=== PATIENT | female | born 1950 | race Caucasian/White ===

== ENCOUNTER → 2016-04-06 | Outpatient (CLI) | payer BC ==
[2005-12-02 12:20] VITALS: PULSE 62
[~2016-04-06] MED LIST: ANTABUSE 250MG250 MG PO; FLONASEALLERGY NS; FOLIC ACID 11 MG/TA1 PO; FOSAMAX 70MG TA70 MG PO; LEVAQUIN 5500 MG/TA1 PO; LEVOTHYROXIN0.137 MG PO; MIDRIN 325 MG-11 CAP PO; MOBIC15 MG PO; MUCINEX1200 MG PO; MULTI VITAMINS1 TAB PO; MULTIPLE VITAMI1 CAP PO; MULTIPLE VITAMI1 TA5 PO; NORCO 325 MG-51 TAB PO; PREDNISONE20 MG PO; PRILOSEC 20MG20 MG PO; PRILOTC PO; RT ADVAIR 228 DISKUS IH; SYNTHROID0.137 MG PO; THIAMINE 1100 MG/TAB PO; TOPAMAX 25MG25 M1 PO; TYLENOL 500MG500 MG PO; ULTRAM 50MG TAB50 MG PO
[2016-04-06 16:25] LABS: HIV 1/2 Antibodies Non-Reactive; HIV-1p24 Antigen Non-Reactive
== END ==
LOC: COL.LAB 15:11
PROVIDERS: Orthopaedic Surgery
DX: Z01.812 Encounter for preprocedural laboratory examination (principal); M16.12 Unilateral primary osteoarthritis, left hip

== ENCOUNTER 2016-10-30 13:18 | Inpatient (IN) | payer BC ==
[~2016-10-30] VITALS: Ht 165.1 cm; Wt 52.1 kg
[~2016-10-30 13:18] MED LIST changes: -ANTABUSE 250MG250 MG PO; -FLONASEALLERGY NS; -FOLIC ACID 11 MG/TA1 PO; -LEVAQUIN 5500 MG/TA1 PO; -MIDRIN 325 MG-11 CAP PO; -MOBIC15 MG PO; -MULTI VITAMINS1 TAB PO; -PREDNISONE20 MG PO; -PRILOTC PO; -RT ADVAIR 228 DISKUS IH; -THIAMINE 1100 MG/TAB PO; -TOPAMAX 25MG25 M1 PO; -ULTRAM 50MG TAB50 MG PO
[2016-10-30 14:02] LABS: HEMATOCRIT 39.8 % (37.0-47.0); HEMOGLOBIN 13.3 g/dl (12.5-16.0); MEAN CELL VOLUME 91 fl (80.0-100.0); MEAN CORPUSCULAR HEMOGLOBIN 30 pg (27.0-31.0); MEAN CORPUSCULAR HGB CONC 33 g/dl (33.0-37.0); MEAN PLATELET VOLUME 9.8 fl (7.4-10.4); PLATELET COUNT 374 K/mm3 (130-400); REDCELL DISTRIBUTION WIDTH-CV 15.4 % (11.5-14.5); WHITE BLOOD COUNT 12.8 K/mm3 (4.8-10.8)
[2016-10-30 14:04] LABS: ADD PATHOLOGY DIFF REVIEW NO
[2016-10-30 14:15] LABS: ADJUSTED CALCIUM 9.5 mg/dL (8.4-10.2); ALANINE AMINOTRANSFERASE 35 U/L (9-52); ALBUMIN 4.3 gm/dL (3.5-5.0); ALKALINE PHOSPHATASE 378 U/L (50-136); ANION GAP 12 mmol/L (7-16); BILIRUBIN,TOTAL 0.6 mg/dL (0.0-1.0); BLOOD UREA NITROGEN 9 mg/dL (7-17); C-REACTIVE PROTEIN 2.1 mg/dL (0.0-0.9); CALCIUM 9.7 mg/dL (8.4-10.2); CARBON DIOXIDE 19 mmol/L (22-30); CHLORIDE 105 mmol/L (98-107); CREATININE, serum 0.73 mg/dL (0.52-1.25); GLUCOSE 111 mg/dL (74-106); POTASSIUM 4.4 mmol/L (3.4-5.0); SODIUM 136 mmol/L (137-145); TOTAL PROTEIN 8.3 gm/dL (6.4-8.2)
[2016-10-30 14:21] LABS: ALLEN TEST NO; ARTERIAL BLD GAS O2 SATURATION 90.9 % (92-100); ARTERIAL BLD GAS TCO2 CT 21.3; ARTERIAL BLOOD GAS HCO3 20.5 meq/L (22-26); ARTERIAL BLOOD GAS PO2 56.7 mmHg (80-100); ARTERIAL BLOOD GAS pH 7.47 (7.35-7.45); ATS? YES
[2016-10-30 14:37] LABS: BAND 2 % (0-10); EOSINOPHIL 5 % (0-4); NEUTROPHILS 58 % (42.0-75.2); PLATELET ESTIMATE NORMAL (NORMAL); TOTAL CELLS COUNTED 100
[2016-10-30] MEDS ORDERED: ULTRAM 50MG TAB50 MG PO (17:16)
[2016-10-30] MEDS ORDERED: MOBIC15 MG PO (17:16)
[2016-10-30 18:53] VITALS: BP 137/68; PULSE 98; TEMP 101.7
[2016-10-30 19:48] VITALS: BP 136/58; PULSE 105; TEMP 101.1
[2016-10-30 22:22] VITALS: BP 142/59; PULSE 101; TEMP 99.9
[2016-10-30 23:34] LABS: PH 6 (5-8); SQUAMOUS EPITHELIAL None Seen /hpf; URINE APPEARANCE Clear; URINE BACTERIA None Seen /hpf; URINE BILIRUBIN Negative (NEGATIVE); URINE BLOOD 1+ (NEGATIVE); URINE COLOR Yellow; URINE GLUCOSE Negative (NEGATIVE); URINE KETONE 1+ (NEGATIVE); URINE UROBILINOGEN Negative (NEGATIVE); URINE WBC 0-2 /hpf
[2016-10-30 23:41] LABS: AMPHETAMINE URINE NEGATIVE; BARBITURATES URINE NEGATIVE; BENZODIAZEPINES URINE POSITIVE; BUPRENORPHINE URINE NEGATIVE; METHADONE URINE NEGATIVE; OPIATES URINE NEGATIVE; OXYCODONE URINE NEGATIVE; PHENCYCLIDINE URINE NEGATIVE; PROPOXYPHENE URINE NEGATIVE; THC CANNABINOIDS URINE NEGATIVE
[2016-10-31] VITALS (7 sets, daily range): BP systolic 108–133; BP diastolic 47–60; PULSE 73–101; TEMP 97.8–101.4
[2016-10-31 07:17] LABS: ADJUSTED CALCIUM 9.3 mg/dL (8.4-10.2); ALBUMIN 3.8 gm/dL (3.5-5.0); BILIRUBIN,TOTAL 0.5 mg/dL (0.0-1.0); CALCIUM 9.1 mg/dL (8.4-10.2); CREATININE, serum 0.73 mg/dL (0.52-1.25); MAGNESIUM 2.1 mg/dL (1.6-2.3); TOTAL PROTEIN 7.3 gm/dL (6.4-8.2)
[2016-11-01] VITALS (7 sets, daily range): BP systolic 110–143; BP diastolic 47–61; PULSE 65–77; TEMP 97.5–98.8
[2016-11-01 13:28] LABS: MEAN CELL VOLUME 91 fl (80.0-100.0); MEAN CORPUSCULAR HGB CONC 33 g/dl (33.0-37.0); RED BLOOD COUNT 3.53 M/mm3 (4.10-5.30); REDCELL DISTRIBUTION WIDTH-CV 16.1 % (11.5-14.5); WHITE BLOOD COUNT 12.4 K/mm3 (4.8-10.8)
[2016-11-01 13:30] LABS: ADD PATHOLOGY DIFF REVIEW NO; HEMOGLOBIN 10.5 g/dl (12.5-16.0); MEAN CORPUSCULAR HEMOGLOBIN 30 pg (27.0-31.0); PLATELET COUNT 264 K/mm3 (130-400)
[2016-11-01 14:28] LABS: BAND 26 % (0-10); MYELOCYTE 2 % (0-0); NEUTROPHILS 61 % (42.0-75.2); TOTAL CELLS COUNTED 100
[2016-11-01 14:29] LABS: PLATELET ESTIMATE NORMAL (NORMAL)
[2016-11-02] VITALS (13 sets, daily range): BP systolic 107–134; BP diastolic 52–73; PULSE 57–87; TEMP 97–97.9
[2016-11-03] VITALS (7 sets, daily range): BP systolic 122–129; BP diastolic 49–84; PULSE 62–76; TEMP 96.9–98.2
[2016-11-03 05:19] LABS: BASO % 0.1 % (0.0-2.0); EOS # 0.2 (0.0-0.7); EOS % 1.9 % (0-4.0); GRAN # 5.2 (1.4-6.5); GRAN % 57.8 % (42.2-75.2); LYMPH # 2.5 (1.2-3.4); LYMPH % 28.3 % (20.0-51.0); MEAN CELL VOLUME 90 fl (80.0-100.0); MEAN CORPUSCULAR HGB CONC 33 g/dl (33.0-37.0); MEAN PLATELET VOLUME 10.3 fl (7.4-10.4); MONO # 0.9 (0.1-0.6); MONO % 10.2 % (1.7-9.3); PLATELET COUNT 306 K/mm3 (130-400); RED BLOOD COUNT 3.32 M/mm3 (4.10-5.30); REDCELL DISTRIBUTION WIDTH-CV 16.1 % (11.5-14.5); WHITE BLOOD COUNT 8.9 K/mm3 (4.8-10.8)
[2016-11-03 05:24] LABS: PROTHROMBIN TIME 11.1 SECONDS (9.7-12.8)
[2016-11-03 05:26] LABS: HEMOGLOBIN 9.8 g/dl (12.5-16.0); MEAN CORPUSCULAR HEMOGLOBIN 30 pg (27.0-31.0)
[2016-11-03 05:44] LABS: CALCIUM 8.7 mg/dL (8.4-10.2); CREATININE, serum 0.64 mg/dL (0.52-1.25); POTASSIUM 3.6 mmol/L (3.4-5.0)
[2016-11-03 09:51] LABS: CEREBROSPINAL TUBE #4; CSF APPEARANCE CLEAR; CSF COLOR COLORLESS
[2016-11-03] MEDS ORDERED: PREDNISONE20 MG PO (13:50)
[2016-11-03] MEDS ORDERED: LEVAQUIN 5500 MG/TA1 PO ×2 (13:50→14:24)
[2016-11-03] MEDS ORDERED: RT ADVAIR 228 DISKUS IH (13:51)
[2016-11-03] MEDS ORDERED: FLONASEALLERGY NS (14:24)
== END 2016-11-03 16:12 | disposition home or self-care (01) | DRG 189 ==
LOC: COL.ER 13:18 → MEDICAL 16:47
PROVIDERS: Emergency Medicine; Family Medicine; Internal Medicine; Nurse Practitioner Family
PROC: 009U3ZX Drainage of Spinal Canal, Percutaneous Approach, Diagnostic (ICD-10-PCS; principal; 2016-11-03)
DX: J96.01 Acute respiratory failure with hypoxia (principal); J44.1 Chronic obstructive pulmonary disease with (acute) exacerbation; E87.3 Alkalosis; F10.239 Alcohol dependence with withdrawal, unspecified; F17.210 Nicotine dependence, cigarettes, uncomplicated; R91.8 Other nonspecific abnormal finding of lung field
CPT/HCPCS: 99222-AI; 99232-AI; 99233-AI; 99239; A9585; J1644; J1956; J2060; J2930; J3411; J3475; J7030; J7512; Q9967

== ENCOUNTER 2016-11-17 08:56 | Outpatient (CLI) | payer BC, OTHER ==
[~2016-11-17] VITALS: Ht 165.1 cm; Wt 50.3 kg
[2016-11-17] VITALS (17 sets, daily range): BP systolic 108–136; BP diastolic 53–80; PULSE 60–76
[~2016-11-17 08:56] MED LIST changes: +FLONASEALLERGY NS; +LEVAQUIN 5500 MG/TA1 PO; +MOBIC15 MG PO; +PREDNISONE20 MG PO; +RT ADVAIR 228 DISKUS IH; +ULTRAM 50MG TAB50 MG PO
[2016-11-17] MEDS ORDERED: PRILOTC PO (09:34)
== END 2016-11-17 13:56 | disposition home or self-care (01) ==
LOC: COL.RAD 08:56
DX: J43.9 Emphysema, unspecified (principal); J84.10 Pulmonary fibrosis, unspecified; F17.210 Nicotine dependence, cigarettes, uncomplicated
CPT/HCPCS: J3010

== ENCOUNTER 2016-11-18 19:52 | Inpatient (IN) | payer BC, OTHER ==
[~2016-11-18] VITALS: Ht 165.1 cm; Wt 50.5 kg
[~2016-11-18 19:52] MED LIST changes: +PRILOTC PO
[2016-11-18 20:43] LABS: PH 6 (5-8); SQUAMOUS EPITHELIAL None Seen /hpf; URINE APPEARANCE Clear; URINE BACTERIA None Seen /hpf; URINE BILIRUBIN Negative (NEGATIVE); URINE BLOOD Negative (NEGATIVE); URINE COLOR Yellow; URINE GLUCOSE Negative (NEGATIVE); URINE KETONE 2+ (NEGATIVE); URINE UROBILINOGEN Negative (NEGATIVE)
[2016-11-18 20:47] LABS: AMPHETAMINE URINE NEGATIVE; BARBITURATES URINE NEGATIVE; BENZODIAZEPINES URINE NEGATIVE; BUPRENORPHINE URINE NEGATIVE; METHADONE URINE NEGATIVE; OPIATES URINE NEGATIVE; OXYCODONE URINE NEGATIVE; PHENCYCLIDINE URINE NEGATIVE; PROPOXYPHENE URINE NEGATIVE; THC CANNABINOIDS URINE NEGATIVE
[2016-11-18 20:56] LABS: ARTERIAL BLD GAS TCO2 CT 23.3; ARTERIAL BLOOD GAS BASE EXCESS -0.2 (-2-2); ARTERIAL BLOOD GAS HCO3 22.4 meq/L (22-26); ARTERIAL BLOOD GAS PHT 7.48 C (7.35-7.45); ARTERIAL BLOOD GAS PO2 79.8 mmHg (80-100); ARTERIAL BLOOD GAS PO2T 79.8 (80-100); ARTERIAL BLOOD GAS pH 7.48 (7.35-7.45); OXYHEMOGLOBIN 94.8 %
[2016-11-18 20:57] LABS: ALLEN TEST YES; ALLENS TEST RESULT PASS; ATS? YES
[2016-11-18 21:04] LABS: INR 0.9 (0.8-3.0); PROTHROMBIN TIME 10.4 SECONDS (9.7-12.8)
[2016-11-18 21:21] LABS: C-REACTIVE PROTEIN 0.8 mg/dL (0.0-0.9); THYROID STIMULATING HORMONE 0.947 uIU/mL (0.465-4.680); TROPONIN-I < 0.012 ng/mL (0.000-0.034)
[2016-11-18 21:56] LABS: BASO # 0.1 (0.0-0.2); BASO % 0.6 % (0.0-2.0); EOS # 0.1 (0.0-0.7); EOS % 1.1 % (0-4.0); GRAN # 6.2 (1.4-6.5); GRAN % 74.3 % (42.2-75.2); HEMATOCRIT 40.5 % (37.0-47.0); HEMOGLOBIN 13.2 g/dl (12.5-16.0); LYMPH # 1.5 (1.2-3.4); LYMPH % 17.9 % (20.0-51.0); MEAN CELL VOLUME 91 fl (80.0-100.0); MEAN CORPUSCULAR HEMOGLOBIN 30 pg (27.0-31.0); MEAN CORPUSCULAR HGB CONC 33 g/dl (33.0-37.0); MEAN PLATELET VOLUME 11.5 fl (7.4-10.4); MONO # 0.5 (0.1-0.6); MONO % 5.5 % (1.7-9.3); PLATELET COUNT 262 K/mm3 (130-400); RED BLOOD COUNT 4.43 M/mm3 (4.10-5.30); REDCELL DISTRIBUTION WIDTH-CV 15.9 % (11.5-14.5); WHITE BLOOD COUNT 8.4 K/mm3 (4.8-10.8)
[2016-11-18 22:05] LABS: ADJUSTED CALCIUM 9.6 mg/dL (8.4-10.2); BILIRUBIN,TOTAL 0.9 mg/dL (0.0-1.0); CALCIUM 9.6 mg/dL (8.4-10.2); CREATININE, serum 0.68 mg/dL (0.52-1.25); POTASSIUM 4.6 mmol/L (3.4-5.0); TOTAL PROTEIN 7.7 gm/dL (6.4-8.2)
[2016-11-18 22:24] VITALS: BP 129/56; PULSE 70; TEMP 99
[2016-11-19] VITALS (7 sets, daily range): BP systolic 97–114; BP diastolic 46–61; PULSE 62–86; TEMP 97.5–98.5
[2016-11-19 03:32] LABS: MAGNESIUM 1.8 mg/dL (1.6-2.3)
[2016-11-20] VITALS (563 sets, daily range): BP systolic 107–134; BP diastolic 51–72; PULSE 67–82; TEMP 97.4–98.2; O2SAT 68–100
[2016-11-20 07:17] LABS: BASO # 0.1 (0.0-0.2); BASO % 0.8 % (0.0-2.0); EOS # 0.7 (0.0-0.7); EOS % 7.7 % (0-4.0); GRAN # 4.9 (1.4-6.5); GRAN % 58.7 % (42.2-75.2); HEMATOCRIT 37.4 % (37.0-47.0); LYMPH # 2.1 (1.2-3.4); LYMPH % 24.4 % (20.0-51.0); MEAN CELL VOLUME 94 fl (80.0-100.0); MEAN CORPUSCULAR HEMOGLOBIN 30 pg (27.0-31.0); MEAN CORPUSCULAR HGB CONC 32 g/dl (33.0-37.0); MEAN PLATELET VOLUME 10.6 fl (7.4-10.4); MONO # 0.7 (0.1-0.6); MONO % 7.9 % (1.7-9.3); PLATELET COUNT 203 K/mm3 (130-400); REDCELL DISTRIBUTION WIDTH-CV 16.1 % (11.5-14.5); WHITE BLOOD COUNT 8.4 K/mm3 (4.8-10.8)
[2016-11-20 07:18] LABS: HEMOGLOBIN 11.9 g/dl (12.5-16.0)
[2016-11-20 07:31] LABS: ANION GAP 8 mmol/L (7-16); BLOOD UREA NITROGEN 5 mg/dL (7-17); CALCIUM 9.2 mg/dL (8.4-10.2); CARBON DIOXIDE 23 mmol/L (22-30); CHLORIDE 113 mmol/L (98-107); CHOLESTEROL 212 mg/dL (120-200); CREATININE, serum 0.64 mg/dL (0.52-1.25); GLUCOSE 78 mg/dL (74-106); HDL CHOLESTEROL 61 mg/dL; LDL CHOLESTEROL 133 mg/dL; POTASSIUM 3.6 mmol/L (3.4-5.0); SODIUM 144 mmol/L (137-145); TRIGLYCERIDE 89 mg/dL
[2016-11-20 07:33] LABS: C-REACTIVE PROTEIN < 0.5 mg/dL (0.0-0.9)
[2016-11-20 07:44] LABS: ERYTHROCYTE SEDIMENTATION RATE 16 mm/hr (0-30)
[2016-11-21] VITALS (33 sets, daily range): BP systolic 118–146; BP diastolic 63–74; PULSE 59–77; TEMP 97.6–98.9; O2SAT 97–99
[2016-11-21 13:29] LABS: .COPPER,S 1.15 mcg/mL (())
[2016-11-22] VITALS (12 sets, daily range): BP systolic 105–141; BP diastolic 51–70; PULSE 61–85; TEMP 97.8–98.9
[2016-11-23] VITALS (7 sets, daily range): BP systolic 114–125; BP diastolic 53–62; PULSE 67–78; TEMP 97.6–98.8
[2016-11-23] MEDS ORDERED: TOPAMAX 25MG25 M1 PO (14:20)
[2016-11-23] MEDS ORDERED: MIDRIN 325 MG-11 CAP PO (14:21)
[2016-11-23] MEDS ORDERED: FOLIC ACID 11 MG/TA1 PO (14:24)
[2016-11-23] MEDS ORDERED: MULTI VITAMINS1 TAB PO (14:25)
[2016-11-23] MEDS ORDERED: THIAMINE 1100 MG/TAB PO (14:25)
[2016-11-23] MEDS ORDERED: ANTABUSE 250MG250 MG PO (14:32)
[2016-11-24 09:57] LABS: VITAMIN E 10.6 mg/L (())
== END 2016-11-23 15:19 | disposition home health service (06) | DRG 897 ==
LOC: COL.ER 19:52 → MEDICAL 21:22 → ICU 11-20 12:20 → MEDICAL 11-21 19:00
PROVIDERS: Family Medicine; Internal Medicine; Nurse Practitioner Family; Physician Assistant; Psychiatry & Neurology Neurology
DX: F10.231 Alcohol dependence with withdrawal delirium (principal); E87.3 Alkalosis; E46 Unspecified protein-calorie malnutrition; Z68.1 Body mass index [BMI] 19.9 or less, adult; J44.9 Chronic obstructive pulmonary disease, unspecified; F17.210 Nicotine dependence, cigarettes, uncomplicated; G43.719 Chronic migraine without aura, intractable, without status migrainosus; G44.1 Vascular headache, not elsewhere classified; F32.9 Major depressive disorder, single episode, unspecified; I67.1 Cerebral aneurysm, nonruptured
CPT/HCPCS: 90791-AI; 99223-AI; 99233-AI; 99239; A9585; G8987-GO; G8988-GO; J1200; J1885; J2060; J3010; J3475; J7030

== ENCOUNTER → 2016-12-17 | Outpatient (CLI) | payer MEDICARE, BC ==
[~2016-12-17] MED LIST changes: +ANTABUSE 250MG250 MG PO; +FOLIC ACID 11 MG/TA1 PO; +MIDRIN 325 MG-11 CAP PO; +MULTI VITAMINS1 TAB PO; +THIAMINE 1100 MG/TAB PO; +TOPAMAX 25MG25 M1 PO
== END ==
LOC: BHSO 09:07
DX: F41.1 Generalized anxiety disorder (principal)

== ENCOUNTER → 2017-01-04 | Outpatient (CLI) | payer MEDICARE, BC, OTHER | LOC: MC.RAD 10:03 | DX: Z12.31 Encounter for screening mammogram for malignant neoplasm of breast (principal) ==

== ENCOUNTER → 2018-05-11 | Outpatient (CLI) | payer MEDICARE, OTHER | LOC: MC.RAD 07:37 | DX: Z12.31 Encounter for screening mammogram for malignant neoplasm of breast (principal) ==

== ENCOUNTER 2018-10-31 17:15 | Emergency (ER) | payer MEDICARE, OTHER ==
[~2018-10-31] VITALS: Ht 167.6 cm; Wt 59.1 kg
[~2018-10-31 17:15] MED LIST changes: +NEURONTIN300 MG/CAP PO; +SYNTHROID0.088 MG/T PO; -SYNTHROID0.137 MG PO
[2018-10-31 17:45] VITALS: TEMP 98.7
[2018-10-31 18:18] LABS: BASO % 0.3 % (0.0-2.0); EOS # 0.6 (0.0-0.7); EOS % 3.9 % (0-4.0); GRAN # 10.5 (1.4-6.5); GRAN % 70.2 % (42.2-75.2); HEMOGLOBIN 10.9 g/dl (12.5-16.0); LYMPH # 2.5 (1.2-3.4); LYMPH % 16.8 % (20.0-51.0); MEAN CELL VOLUME 91 fl (80.0-100.0); MEAN CORPUSCULAR HEMOGLOBIN 30 pg (27.0-31.0); MEAN CORPUSCULAR HGB CONC 33 g/dl (33.0-37.0); MEAN PLATELET VOLUME 9.8 fl (7.4-10.4); MONO # 1.2 (0.1-0.6); MONO % 8.3 % (1.7-9.3); PLATELET COUNT 443 K/mm3 (130-400); RED BLOOD COUNT 3.67 M/mm3 (4.10-5.30)
[2018-10-31 18:26] LABS: ALBUMIN 3.6 gm/dL (3.5-5.0); BILIRUBIN,TOTAL 0.4 mg/dL (0.0-1.0); CALCIUM 8.8 mg/dL (8.4-10.2); CREATININE, serum 0.67 (0.52-1.25); POTASSIUM 4.3 mmol/L (3.4-5.0); TOTAL PROTEIN 6.5 gm/dL (6.4-8.2)
[2018-10-31 18:29] LABS: HEMATOCRIT 33.4 % (37.0-47.0)
[2018-10-31 18:54] LABS: COLLECTION METHOD CLEAN CATCH
[2018-10-31 19:01] LABS: PH 6 (5-8); SQUAMOUS EPITHELIAL 0-2 /hpf; URINE APPEARANCE Clear; URINE BACTERIA None Seen /hpf; URINE BILIRUBIN Negative (NEGATIVE); URINE BLOOD Negative (NEGATIVE); URINE COLOR Yellow; URINE GLUCOSE Negative (NEGATIVE); URINE KETONE Negative (NEGATIVE); URINE LEUKOCYTE ESTERASE Trace (NEGATIVE); URINE NITRATE Negative (NEGATIVE); URINE PROTEIN(semi-quant) Negative (NEGATIVE); URINE RBC 0-2 /hpf; URINE UROBILINOGEN Negative (NEGATIVE)
[2018-10-31] MEDS ORDERED: PHENERGAN 25 TA25 MG PO (19:59)
[2018-10-31 20:46] VITALS: BP 116/68; PULSE 99
== END 2018-10-31 20:19 | disposition home or self-care (01) ==
LOC: COL.ER 17:15
PROVIDERS: Emergency Medicine
DX: K85.90 Acute pancreatitis without necrosis or infection, unspecified (principal); J44.9 Chronic obstructive pulmonary disease, unspecified; K21.9 Gastro-esophageal reflux disease without esophagitis; F32.9 Major depressive disorder, single episode, unspecified; F17.210 Nicotine dependence, cigarettes, uncomplicated; Z79.51 Long term (current) use of inhaled steroids
CPT/HCPCS: J2185; J2405; J3010; J7030; Q9967

== ENCOUNTER 2018-11-10 14:44 | Emergency (ER) | payer MEDICARE, OTHER ==
[~2018-11-10] VITALS: Ht 167.6 cm; Wt 60.5 kg
[~2018-11-10 14:44] MED LIST changes: +PHENERGAN 25 TA25 MG PO
[2018-11-10 15:25] LABS: HEMOGLOBIN 11.7 g/dl (12.5-16.0); MEAN CELL VOLUME 91 fl (80.0-100.0); MEAN CORPUSCULAR HEMOGLOBIN 30 pg (27.0-31.0); MEAN CORPUSCULAR HGB CONC 32 g/dl (33.0-37.0); MEAN PLATELET VOLUME 9.5 fl (7.4-10.4); PLATELET COUNT 510 K/mm3 (130-400); RED BLOOD COUNT 3.97 M/mm3 (4.10-5.30)
[2018-11-10 15:26] LABS: HEMATOCRIT 36.1 % (37.0-47.0)
[2018-11-10 15:39] LABS: ALANINE AMINOTRANSFERASE < 6 U/L (9-52); ALBUMIN 3.6 gm/dL (3.5-5.0); ALKALINE PHOSPHATASE 125 U/L (50-136); AMYLASE 204 U/L (30-110); ANION GAP 10 mmol/L (7-16); AST,SGOT 29 U/L (15-37); BILIRUBIN,TOTAL 0.6 mg/dL (0.0-1.0); BLOOD UREA NITROGEN 7 mg/dL (7-17); C-REACTIVE PROTEIN 7.7 mg/dL (0.0-0.9); CARBON DIOXIDE 25 mmol/L (22-30); CHLORIDE 94 mmol/L (98-107); CREATININE, serum 0.69 (0.52-1.25); GLUCOSE 119 mg/dL (74-106); LIPASE 862 U/L (23-300); SODIUM 130 mmol/L (137-145); TOTAL PROTEIN 6.6 gm/dL (6.4-8.2)
[2018-11-10 16:13] LABS: EOSINOPHIL 2 % (0-4); HYPOCHROMIA 1+; LYMPHOCYTE 10 % (20.0-51.0); NEUTROPHILS 80 % (42.0-75.2); PLATELET ESTIMATE INCREASED (NORMAL)
[2018-11-10 16:14] LABS: ANISOCYTOSIS 1+
[2018-11-10 17:21] VITALS: BP 96/46; PULSE 95; TEMP 98.3
== END 2018-11-10 17:18 | disposition home or self-care (01) ==
LOC: COL.ER 14:44
PROVIDERS: Emergency Medicine
DX: K85.90 Acute pancreatitis without necrosis or infection, unspecified (principal); J44.9 Chronic obstructive pulmonary disease, unspecified; K21.9 Gastro-esophageal reflux disease without esophagitis; G43.909 Migraine, unspecified, not intractable, without status migrainosus; E03.9 Hypothyroidism, unspecified; F17.210 Nicotine dependence, cigarettes, uncomplicated; G62.9 Polyneuropathy, unspecified; Z90.710 Acquired absence of both cervix and uterus; Z90.89 Acquired absence of other organs; Z90.49 Acquired absence of other specified parts of digestive tract; Z79.51 Long term (current) use of inhaled steroids
CPT/HCPCS: J2405; J3010; J7030

== ENCOUNTER 2019-01-18 11:48 | Emergency (ER) | payer MEDICARE, OTHER ==
[~2019-01-18] VITALS: Ht 167.6 cm; Wt 53.2 kg
[2019-01-18 11:56] VITALS: TEMP 98.3
[2019-01-18 12:48] LABS: MEAN CELL VOLUME 88 fl (80.0-100.0); MEAN CORPUSCULAR HGB CONC 31 g/dl (33.0-37.0); MEAN PLATELET VOLUME 9.3 fl (7.4-10.4); PLATELET COUNT 733 K/mm3 (130-400); RED BLOOD COUNT 3.17 M/mm3 (4.10-5.30); REDCELL DISTRIBUTION WIDTH-CV 15.5 % (11.5-14.5)
[2019-01-18 13:00] LABS: ALBUMIN 3.6 gm/dL (3.5-5.0); BILIRUBIN,TOTAL 0.6 mg/dL (0.0-1.0); CALCIUM 8.8 mg/dL (8.4-10.2); CREATININE, serum 0.72 (0.52-1.25); POTASSIUM 4.9 mmol/L (3.4-5.0); TOTAL PROTEIN 7.1 gm/dL (6.4-8.2)
[2019-01-18 13:18] LABS: HEMOGLOBIN 8.8 g/dl (12.5-16.0); MEAN CORPUSCULAR HEMOGLOBIN 28 pg (27.0-31.0)
[2019-01-18 13:31] LABS: C-REACTIVE PROTEIN 35.2 mg/dL (0.0-0.9)
[2019-01-18 13:53] LABS: BAND 10 % (0-10); LYMPHOCYTE 3 % (20.0-51.0); NEUTROPHILS 83 % (42.0-75.2)
[2019-01-18 13:54] LABS: ANISOCYTOSIS 1+; HYPOCHROMIA 2+; PLATELET ESTIMATE INCREASED (NORMAL)
[2019-01-18 16:20] LABS: COLLECTION METHOD CLEAN CATCH
[2019-01-18 16:31] LABS: PH 6 (5-8); SQUAMOUS EPITHELIAL 0-2 /hpf; URINE APPEARANCE Clear; URINE BACTERIA None Seen /hpf; URINE BILIRUBIN Negative (NEGATIVE); URINE BLOOD Negative (NEGATIVE); URINE COLOR Yellow; URINE GLUCOSE Negative (NEGATIVE); URINE KETONE 1+ (NEGATIVE); URINE LEUKOCYTE ESTERASE Negative (NEGATIVE); URINE NITRATE Negative (NEGATIVE); URINE PROTEIN(semi-quant) Negative (NEGATIVE); URINE RBC 0-2 /hpf; URINE UROBILINOGEN Negative (NEGATIVE)
[2019-01-18 20:45] VITALS: BP 118/69; PULSE 97
== END 2019-01-18 20:55 | disposition short-term general hospital (02) ==
LOC: COL.ER 11:48
PROVIDERS: Emergency Medicine
DX: I31.3 Pericardial effusion (noninflammatory) (principal); K85.90 Acute pancreatitis without necrosis or infection, unspecified; J90 Pleural effusion, not elsewhere classified; J44.9 Chronic obstructive pulmonary disease, unspecified; F32.9 Major depressive disorder, single episode, unspecified; F17.210 Nicotine dependence, cigarettes, uncomplicated; K94.23 Gastrostomy malfunction
CPT/HCPCS: J0692; J2250; J2405; J2704; J3010; J7030; J7120; Q9967

== ENCOUNTER → 2019-05-19 | Outpatient (CLI) | payer MEDICARE, OTHER | LOC: MC.RAD 11:03 | DX: Z12.31 Encounter for screening mammogram for malignant neoplasm of breast (principal) ==

== ENCOUNTER → 2020-05-20 | Outpatient (CLI) | payer MEDICARE ==
[~2020-05-20] MED LIST changes: +00186-0370-20 IH; +CELEXA 20MG20 MG/TAB PO; +CORDARONE200 MG/TAB PO; +CREON 36000 PO; +ELIQUIS 5MG PO; +EPA FISH OIL1 SGL PO; +FLEXERIL 1010 MG/TAB PO; +LOPRESSOR 225 MG/TAB; +LOTRISONE CREAM15 GM TP; +MAGNESIUM250 M1 PO; +MASON NATURAL2000 IU PO; +MELATONIN5 M1 PO; +MUCINEX 60600 MG/TA1 PO; +NATURAL POTASS595 MG; +NATURAL POTASS595 MG PO; +NORCO 325 MG-7.1 TAB PO; -SYNTHROID0.088 MG/T PO; +SYNTHROID0.125 MG/T PO; +XYZAL5 MG
== END ==
LOC: MC.RAD
DX: Z12.31 Encounter for screening mammogram for malignant neoplasm of breast (principal)

== ENCOUNTER → 2020-08-22 | Outpatient (CLI) | payer MEDICARE | LOC: COL.RAD 13:24 | DX: Z12.2 Encounter for screening for malignant neoplasm of respiratory organs (principal); Z87.891 Personal history of nicotine dependence ==

== ENCOUNTER 2021-03-31 18:52 | Inpatient (IN) | payer MEDICARE, OTHER ==
[~2021-03-31] VITALS: Ht 170.2 cm; Wt 56.3 kg
[2021-03-31 19:59] LABS: BASO # 0.1 K/mm3 (0.0-0.2); BASO % 0.2 % (0.0-2.0); EOS % 0.2 % (0.0-4.0); GRAN # 16.3 K/mm3 (1.4-6.5); GRAN % 75.6 % (42.2-75.2); HEMOGLOBIN 12.3 g/dl (12.5-16.0); LYMPH # 2.6 K/mm3 (1.2-3.4); LYMPH % 11.9 % (20.0-51.0); MEAN CELL VOLUME 92 fl (80.0-100.0); MEAN CORPUSCULAR HEMOGLOBIN 31 pg (27-31); MEAN CORPUSCULAR HGB CONC 34 g/dl (33.0-37.0); MEAN PLATELET VOLUME 10.2 fl (7.4-10.4); MONO # 2.4 K/mm3 (0.1-0.6); MONO % 11.2 % (1.7-9.3); PLATELET COUNT 322 K/mm3 (130-400); RED BLOOD COUNT 3.94 M/mm3 (4.10-5.30); REDCELL DISTRIBUTION WIDTH-CV 13.2 % (11.5-14.5)
[2021-03-31 20:02] LABS: HEMATOCRIT 36.1 % (37.0-47.0)
[2021-03-31 20:13] LABS: ALBUMIN 2.7 gm/dL (3.4-4.8); BILIRUBIN,TOTAL 0.7 mg/dL (0.2-1.2); CREATININE, serum 1.75 mg/dL (0.57-1.11); POTASSIUM 3.7 mmol/L (3.5-4.5)
[2021-03-31 20:19] LABS: TROPONIN-I 0.027 ng/mL (0.00-0.033)
[2021-03-31 20:40] LABS: BAND 2 % (0-10); LYMPHOCYTE 13 % (20.0-51.0); NEUTROPHILS 84 % (42.0-75.2); PLATELET ESTIMATE NORMAL (NORMAL)
[2021-03-31 21:55] LABS: COLLECTION METHOD CLEAN CATCH
[2021-03-31 22:01] LABS: MUCOUS Present (NOT PRESENT); PH 5 (5-8); SQUAMOUS EPITHELIAL 0-2 /hpf (0-10); URINE APPEARANCE Hazy (CLEAR/HAZY); URINE BACTERIA None Seen /hpf (NONE SEEN); URINE BILIRUBIN Negative (NEGATIVE); URINE BLOOD 1+ (NEGATIVE); URINE COLOR Yellow (YELLOW); URINE GLUCOSE Negative (NEGATIVE); URINE KETONE Trace (NEGATIVE); URINE LEUKOCYTE ESTERASE Negative (NEGATIVE); URINE NITRATE Negative (NEGATIVE); URINE PROTEIN(semi-quant) 1+ (NEGATIVE); URINE UROBILINOGEN Negative (NEGATIVE)
[2021-04-01] MEDS ORDERED: MOBIC15 MG PO (00:13)
[2021-04-01 03:44] VITALS: BP 105/48; PULSE 59; TEMP 98.1
[2021-04-01 06:14] LABS: BASO % 0.2 % (0.0-2.0); EOS % 0.2 % (0.0-4.0); GRAN # 14.7 K/mm3 (1.4-6.5); GRAN % 87.9 % (42.2-75.2); HEMOGLOBIN 11.6 g/dl (12.5-16.0); LYMPH % 6.1 % (20.0-51.0); MEAN CELL VOLUME 94 fl (80.0-100.0); MEAN CORPUSCULAR HEMOGLOBIN 31 pg (27-31); MEAN CORPUSCULAR HGB CONC 33 g/dl (33.0-37.0); MEAN PLATELET VOLUME 9.9 fl (7.4-10.4); MONO # 0.8 K/mm3 (0.1-0.6); MONO % 4.9 % (1.7-9.3); PLATELET COUNT 316 K/mm3 (130-400); RED BLOOD COUNT 3.71 M/mm3 (4.10-5.30); REDCELL DISTRIBUTION WIDTH-CV 13.4 % (11.5-14.5)
[2021-04-01 06:39] LABS: CALCIUM 7.8 mg/dL (8.4-10.2); CREATININE, serum 1.02 mg/dL (0.57-1.11); POTASSIUM 3.2 mmol/L (3.5-4.5)
[2021-04-01 08:02] VITALS: BP 108/59; PULSE 60; TEMP 97.7
[2021-04-01 12:28] VITALS: BP 103/60; PULSE 61; TEMP 98
[2021-04-01 15:45] VITALS: BP 107/63; PULSE 98; TEMP 98.3
[2021-04-01 19:15] VITALS: BP 119/58; PULSE 84; TEMP 97.8
[2021-04-01 23:35] VITALS: BP 121/62; PULSE 74; TEMP 97.8
[2021-04-02 03:44] VITALS: BP 129/57; PULSE 66; TEMP 97.6
[2021-04-02 06:04] LABS: HEMOGLOBIN 10.4 g/dl (12.5-16.0); MEAN CELL VOLUME 93 fl (80.0-100.0); MEAN CORPUSCULAR HEMOGLOBIN 31 pg (27-31); MEAN CORPUSCULAR HGB CONC 33 g/dl (33.0-37.0); MEAN PLATELET VOLUME 9.8 fl (7.4-10.4); PLATELET COUNT 325 K/mm3 (130-400); RED BLOOD COUNT 3.35 M/mm3 (4.10-5.30); REDCELL DISTRIBUTION WIDTH-CV 13.4 % (11.5-14.5)
[2021-04-02 06:07] LABS: HEMATOCRIT 31.3 % (37.0-47.0)
[2021-04-02 06:23] LABS: CALCIUM 8.2 mg/dL (8.4-10.2); CREATININE, serum 0.78 mg/dL (0.57-1.11); POTASSIUM 4.2 mmol/L (3.5-4.5)
[2021-04-02 06:49] LABS: BAND 2 % (0-10); LYMPHOCYTE 8 % (20.0-51.0); NEUTROPHILS 87 % (42.0-75.2); PLATELET ESTIMATE NORMAL (NORMAL)
[2021-04-02 07:36] VITALS: BP 117/58; PULSE 80; TEMP 97.3
[2021-04-02 12:03] VITALS: BP 122/57; PULSE 62
[2021-04-02 15:49] VITALS: BP 125/55; PULSE 75; TEMP 97.9
[2021-04-02 19:13] VITALS: BP 140/63; PULSE 65; TEMP 97.6
[2021-04-02 23:26] VITALS: BP 139/64; PULSE 63; TEMP 97.4
[2021-04-03 03:35] VITALS: BP 159/65; PULSE 60; TEMP 97.8
[2021-04-03 07:00] LABS: BASO % 0.1 % (0.0-2.0); GRAN # 11.7 K/mm3 (1.4-6.5); HEMOGLOBIN 10.2 g/dl (12.5-16.0); LYMPH # 1.9 K/mm3 (1.2-3.4); LYMPH % 12.7 % (20.0-51.0); MEAN CELL VOLUME 94 fl (80.0-100.0); MEAN CORPUSCULAR HEMOGLOBIN 31 pg (27-31); MEAN CORPUSCULAR HGB CONC 33 g/dl (33.0-37.0); MEAN PLATELET VOLUME 10.3 fl (7.4-10.4); MONO # 1.1 K/mm3 (0.1-0.6); MONO % 7.4 % (1.7-9.3); PLATELET COUNT 346 K/mm3 (130-400); RED BLOOD COUNT 3.27 M/mm3 (4.10-5.30); REDCELL DISTRIBUTION WIDTH-CV 13.4 % (11.5-14.5)
[2021-04-03 07:09] LABS: CALCIUM 8.2 mg/dL (8.4-10.2); CREATININE, serum 0.8 mg/dL (0.57-1.11); HEMATOCRIT 30.6 % (37.0-47.0)
[2021-04-03 08:15] VITALS: BP 124/62; PULSE 62
[2021-04-03] MEDS ORDERED: OMNICEF 300MG300 MG PO (09:16)
[2021-04-03] MEDS ORDERED: MEDROL 4MG DOSPA4 MG PO (09:17)
== END 2021-04-03 12:10 | disposition home health service (06) | DRG 871 ==
LOC: COL.ER 18:52 → SURG 22:49
PROVIDERS: Physician Assistant; Student in an Organized Health Care Education/Training Program; ADMIT Student in an Organized Health Care Education/Training Program
PROC: 4B02XSZ Measurement of Cardiac Pacemaker, External Approach (ICD-10-PCS; principal; 2021-04-01)
DX: A41.9 Sepsis, unspecified organism (principal); J18.9 Pneumonia, unspecified organism; N17.9 Acute kidney failure, unspecified; K86.1 Other chronic pancreatitis; J44.0 Chronic obstructive pulmonary disease with (acute) lower respiratory infection; J44.1 Chronic obstructive pulmonary disease with (acute) exacerbation; E87.1 Hypo-osmolality and hyponatremia; I48.0 Paroxysmal atrial fibrillation; E03.9 Hypothyroidism, unspecified; G89.29 Other chronic pain; M81.0 Age-related osteoporosis without current pathological fracture; K21.9 Gastro-esophageal reflux disease without esophagitis; M79.7 Fibromyalgia; F17.200 Nicotine dependence, unspecified, uncomplicated; E86.0 Dehydration; D64.9 Anemia, unspecified; F32.A Depression, unspecified; E87.6 Hypokalemia; Z96.642 Presence of left artificial hip joint; Z20.822 Contact with and (suspected) exposure to COVID-19; Z79.01 Long term (current) use of anticoagulants; Z90.49 Acquired absence of other specified parts of digestive tract; Z90.710 Acquired absence of both cervix and uterus; Z95.0 Presence of cardiac pacemaker; Z79.890 Hormone replacement therapy; Z23 Encounter for immunization
CPT/HCPCS: 99223-AI; 99232-AI; 99233-AI; 99239; J0696; J2543; J2920; J3370; J7030; J7050

== ENCOUNTER → 2021-06-25 | Outpatient (CLI) | payer MEDICARE, OTHER ==
[~2021-06-25] MED LIST changes: +MEDROL 4MG DOSPA4 MG PO; +OMNICEF 300MG300 MG PO
== END ==
LOC: MC.RAD 11:18
DX: Z12.31 Encounter for screening mammogram for malignant neoplasm of breast (principal)

== ENCOUNTER → 2021-08-22 | Outpatient (CLI) | payer MEDICARE, OTHER | LOC: COL.RAD 14:01 | DX: Z12.2 Encounter for screening for malignant neoplasm of respiratory organs (principal); J43.9 Emphysema, unspecified; J98.4 Other disorders of lung; Z87.891 Personal history of nicotine dependence ==

== ENCOUNTER → 2023-08-05 | Outpatient (CLI) | payer MEDICARE | LOC: MC.RAD 07:50 | DX: Z12.31 Encounter for screening mammogram for malignant neoplasm of breast (principal) ==

== ENCOUNTER → 2023-11-03 | Outpatient (CLI) | payer MEDICARE | LOC: COL.RAD 08:42 | DX: R51.9 Headache, unspecified (principal); Z79.01 Long term (current) use of anticoagulants ==

== ENCOUNTER → 2023-12-07 | Outpatient (CLI) | payer MEDICARE ==
[~2023-12-07] MED LIST changes: +Iohexol 300 - 100 ML VIAL IV ONE; +NS 100 ML IV SCH
== END ==
LOC: COL.RAD 14:33
DX: D35.02 Benign neoplasm of left adrenal gland (principal); R74.8 Abnormal levels of other serum enzymes; K86.9 Disease of pancreas, unspecified
CPT/HCPCS: Q9967

== ENCOUNTER 2023-12-22 20:31 | Inpatient (IN) | payer MEDICARE ==
[~2023-12-22] VITALS: Ht 170.2 cm; Wt 49.8 kg
[~2023-12-22 20:31] MED LIST changes: -Iohexol 300 - 100 ML VIAL IV ONE; -NS 100 ML IV SCH
[2023-12-23] VITALS (9 sets, daily range): BP systolic 107–132; BP diastolic 57–68; PULSE 59–83; TEMP 97.6–98.7
[2023-12-23 00:34] LABS: BASO # 0.1 K/mm3 (0.0-0.2); BASO % 0.5 % (0.0-2.0); EOS # 0.3 K/mm3 (0.0-0.7); EOS % 2.7 % (0.0-4.0); GRAN # 7.7 K/mm3 (1.4-6.5); GRAN % 65.4 % (42.2-75.2); HEMATOCRIT 38.9 % (37.0-47.0); HEMOGLOBIN 12.2 g/dl (12.5-16.0); LYMPH # 2.6 K/mm3 (1.2-3.4); LYMPH % 22.3 % (20.0-51.0); MEAN CELL VOLUME 98 fl (80.0-100.0); MEAN CORPUSCULAR HEMOGLOBIN 31 pg (27-31); MEAN CORPUSCULAR HGB CONC 31 g/dl (33.0-37.0); MEAN PLATELET VOLUME 11.3 fl (7.4-10.4); MONO % 8.7 % (1.7-9.3); PLATELET COUNT 245 K/mm3 (130-400); RED BLOOD COUNT 3.98 M/mm3 (4.10-5.30); REDCELL DISTRIBUTION WIDTH-CV 14.2 % (11.5-14.5)
[2023-12-23 00:52] LABS: ALANINE AMINOTRANSFERASE 12 U/L (0-55); ALBUMIN 3.8 g/dL (3.4-4.8); ALKALINE PHOSPHATASE 66 U/L (40-150); ANION GAP 12 mmol/L (7-16); AST,SGOT 18 U/L (5-34); BILIRUBIN,TOTAL 0.3 mg/dL (0.2-1.2); BLOOD UREA NITROGEN 19 mg/dL (10-20); CALCIUM 9.7 mg/dL (8.4-10.2); CHLORIDE 108 mEq/L (98-107); CREATININE, serum 0.98 mg/dL (0.57-1.11); GLUCOSE 80 mg/dL (70-99); LIPASE 532 U/L (8-78); POTASSIUM 4.1 mEq/L (3.5-4.5); SODIUM 140 mEq/L (136-145); TOTAL PROTEIN 7.5 g/dl (6.2-8.1)
[2023-12-23 01:04] LABS: TROPONIN-I < 0.010 ng/mL (0.00-0.033)
[2023-12-23] MEDS ORDERED: Iohexol 300 - 100 ML VIAL IV ONE (01:11)
[2023-12-23] MEDS ORDERED: NS 100 ML IV ONE (01:15)
[2023-12-23] MEDS ORDERED: Morphine 4 MG/ML VIAL IV ONE (02:00)
[2023-12-23] MEDS ORDERED: NS 1,000 ML IV ONE (02:00)
[2023-12-23] MEDS ORDERED: Morphine 4 MG/ML VIAL IV PRN (02:15)
[2023-12-23] MEDS ORDERED: Ondansetron 4 MG/2 ML VIAL IV PRN (02:15)
[2023-12-23] MEDS ORDERED: LR 1,000 ML IV SCH (02:15)
[2023-12-23 02:54] LABS: COLLECTION METHOD CLEAN CATCH
--- NOTE | 2023-12-23 03:00 | NUR ---
Report recieved from DARYRL Rosa. All questions answered at this time.
[2023-12-23 03:02] LABS: PH 6.5 (5.0-8.5); URINE APPEARANCE CLEAR (CLEAR/HAZY); URINE BLOOD 1+ (NEGATIVE); URINE COLOR YELLOW (YELLOW); URINE GLUCOSE NEGATIVE (NEGATIVE); URINE KETONE 2+ (NEGATIVE); URINE NITRATE NEGATIVE (NEGATIVE); URINE PROTEIN(semi-quant) NEGATIVE (NEGATIVE)
--- NOTE | 2023-12-23 03:15 | NUR ---
Patient arrived to room 351 with personal belongings at this time. Denies any pain at this time. Needs met. Assessment and med rec complete to best ability. IV in right AC infusing without complications. Oriented patient to room, call light, bed, and bathroom. Call light and personal items in reach. Bed in low position.
[2023-12-23] MEDS ORDERED: PRINIVIL20 MG PO (04:05)
--- NOTE | 2023-12-23 04:31 | NUR ---
Hospitalist SAURABH Cutler called and asked if patient is okay to have ice chips. Stated she is okay to have ice chips.
--- NOTE | 2023-12-23 07:39 | NUR ---
Bedside report received from DARRYL Damon. Pt awake in bed with no complaints. Call light within reach.
[2023-12-23] MEDS ORDERED: Amiodarone 200 MG TAB PO SCH (09:00)
[2023-12-23] MEDS ORDERED: Citalopram 20 MG TAB PO SCH (09:00)
[2023-12-23] MEDS ORDERED: Apixaban 5 MG TABLET PO SCH (09:00)
[2023-12-23] MEDS ORDERED: Pantoprazole 40 MG in NS 10 ML IV SCH (09:00)
--- NOTE | 2023-12-23 09:03 | NUR ---
This director of emergency nursing recieved report from DARRYL Damon. Patient is awake in bed with bed in lowest postition with 3 bedrails up and call light within reach. Patient has IV to RAC with LR running at 100 mL/hr.
--- NOTE | 2023-12-23 10:17 | NUR ---
shake out worker met with pt to discuss discharge planning. She reports to live alone in [place], but her neighbor assists her when needed. She states to also have [facility] services, as needed. Pt states she sees Dr. Tan for PCP needs and obtains medications from [facility] with no difficulties. She confirmed to have Medicare A/B and [employer] [place] insurance. Pt states she is typically independent with ADLS and uses a [facility] for DME. She reports her daughter, Alejandra [phone] is her contact and NOK. DANIELLE verified this on file. Pt was open to Home Health services upon discharge, if reccomended and she would like to use [facility]. SW called [facility] and they do not have pt actively on services, she was discharged in 2021. Discharge Plan: likely home with HH
--- NOTE | 2023-12-23 11:00 | NUR ---
Pt awake in bed with no complaints. Shift assessment completed. VSS. IVF infusing into Rt AC at 75mL/hr as ordered with no complications. Pt has complaints of tenderness to lower ABD with touch. Pt tolerated clear liquid diet at lunch with minimal complaints of nausea. Pt ambulates with SBA to bathroom and back to bed with no complications. [employer] student Jana at bedside. Pt has no request at this time. Call light within reach.
--- NOTE | 2023-12-23 11:12 | NUR ---
Initial visit; Patient thanked [employer] for looking in on her and offering prayer, listening and keeping her in her thoughts and prayers. [employer] reminded her to give her concerns to God and don't take them back.
--- NOTE | 2023-12-23 13:36 | NUR ---
This nursing admin reported off to DARRYL Bush. Patient is in bed with bed in lowest position and two bedrails up. Patient has LR running in LAC IV at 75 mL/hr. Pt has call light within reach.
[2023-12-23] MEDS ORDERED: CREON 60000 U-11 ECC PO (14:02)
[2023-12-23] MEDS ORDERED: PRISTIQ 50 MG T50 MG PO (14:02)
[2023-12-23] MEDS ORDERED: WELLBUTRIN XL150 MG PO (14:03)
[2023-12-23] MEDS ORDERED: TOPAMAX 25MG25 M1 PO (14:03)
--- NOTE | 2023-12-23 19:28 | NUR ---
Spoke with Dr. Martinez about how patient is tolerating clear liquid diet. Informed her patient is tolerating well and no complaints of nausea or signifigant pain. Recieved orders to DC IVF after current bag is completed and advance diet to full liquid in the morning.
--- NOTE | 2023-12-23 19:44 | NUR ---
Hospitalist SAURABH Cutler called for patient request of something to help her sleep. Patient states she takes 2 tylenol PM and 40mg of melatonin at night to help her sleep. Recieved orders for Unisom 25mg PO QHS, PRN.
--- NOTE | 2023-12-23 20:23 | NUR ---
Patient resting in bed. Rates pain at 5/10, prn pain meds given. Needs met. Assessment complete. IV in right AC infusing without complications. Call light and personal items in reach. Bed in low position and bed alarm on.
[2023-12-23] MEDS ORDERED: Gabapentin 300 MG CAP PO SCH (21:00)
[2023-12-24] VITALS (9 sets, daily range): BP systolic 93–118; BP diastolic 54–65; PULSE 60–70; TEMP 97.5–97.7
[2023-12-24 06:55] LABS: BASO % 0.3 % (0.0-2.0); EOS # 0.3 K/mm3 (0.0-0.7); GRAN # 3.2 K/mm3 (1.4-6.5); HEMOGLOBIN 10.6 g/dl (12.5-16.0); LYMPH # 2.1 K/mm3 (1.2-3.4); MEAN CELL VOLUME 95 fl (80.0-100.0); MEAN CORPUSCULAR HEMOGLOBIN 31 pg (27-31); MEAN CORPUSCULAR HGB CONC 33 g/dl (33.0-37.0); MEAN PLATELET VOLUME 11.7 fl (7.4-10.4); MONO # 0.7 K/mm3 (0.1-0.6); MONO % 11.2 % (1.7-9.3); PLATELET COUNT 179 K/mm3 (130-400); RED BLOOD COUNT 3.41 M/mm3 (4.10-5.30); REDCELL DISTRIBUTION WIDTH-CV 14.2 % (11.5-14.5)
[2023-12-24 07:03] LABS: HEMATOCRIT 32.5 % (37.0-47.0)
[2023-12-24 07:09] LABS: CALCIUM 8.8 mg/dL (8.4-10.2); CREATININE, serum 0.8 mg/dL (0.57-1.11); POTASSIUM 4.1 mEq/L (3.5-4.5)
--- NOTE | 2023-12-24 07:27 | NUR ---
Bedside report received from DARRYL Damon. Pt resting in bed with eyes closed and no complaints. Call light within reach.
--- NOTE | 2023-12-24 08:10 | NUR ---
Pt awake in bed with no complaints. Shift assessment completed. VSS. Pt denies pain rating 0/10. INT to Rt AC patent with no swelling, redness, or drainage. Critical blood sugar of [address] Martinez. Apple juice provided to pt and recheck blood sugar noted to be 103. No new orders received at this time. Pt has no request. Call light within reach.
--- NOTE | 2023-12-24 13:14 | NUR ---
PATIENT GIVEN DISCHARGE INSTRUCTIONS AND EDUCAITON. IV REMOVED. PATIENT VOICED UNDERSTANDING OF HER DISCHARGE INSTRUCTIONS. PATIENT AWAITIGN RIDE TO ARRIVE AT 1400.
--- NOTE | 2023-12-24 13:17 | NUR ---
DARRYL Fink discussed discharge paperwork with pt and discontinued INT to Rt AC. Pt is leaving facility with family back to home.
--- NOTE | 2023-12-24 16:54 | NUR ---
Licensed Guide met with patient who confirmed she would like Home Health services from [facility]. DANIELLE contacted Cyndie at [facility] and faxed referral. Cyndie called back with acceptance so DANIELLE Berry faxed discharge orders on DANIELLE's behalf. Discharge Plan: [facility]
== END 2023-12-24 13:57 | disposition home or self-care (01) | DRG 440 ==
LOC: COL.ER 20:31 → MEDICAL 12-23 01:53
PROVIDERS: Nurse Practitioner Primary Care; Physician Assistant; ADMIT Internal Medicine
DX: K85.90 Acute pancreatitis without necrosis or infection, unspecified (principal); I10 Essential (primary) hypertension; E03.9 Hypothyroidism, unspecified; I48.91 Unspecified atrial fibrillation; G89.29 Other chronic pain; M79.7 Fibromyalgia
CPT/HCPCS: J2270; J2470; J7030; J7120; Q9967